=== PATIENT | female | born 1995 ===

== ENCOUNTER 2016-09-24 17:37 | Emergency (ER) | payer MEDICAID ==
[2016-09-24 17:46] VITALS: BP 154/88; PULSE 88; RESP 16; TEMP 98.3; O2SAT 100
--- NOTE | 2016-09-24 18:31 | ED PDOC ---
Lower Extremity Pain/Injury Time Seen by Provider: 09/24/16 17:48 Chief Complaint (Nursing): Lower Extremity Problem/Injury Chief Complaint (Provider): Lower Extremity Problem/Injury History Per: Patient History/Exam Limitations: no limitations Onset/Duration Of Symptoms: Days (x1 day) Current Symptoms Are (Timing): Still Present Additional Complaint(s): 21 y/o female who presents to the emergency department with a complaint of an injury to the left knee after jumping on a trampoline yesterday. Patient states she felt like her bone "popped" out and went back into place. Reports still feels like a bone is moving within the knee cap and cannot walk properly. Pain worse when bearing weight. PMD: None Past Medical History Reviewed: Historical Data, Nursing Documentation, Vital Signs Vital Signs: Last Vital Signs Temp 98.3 F 09/24/16 17:42 Pulse 88 09/24/16 17:42 Resp 16 09/24/16 17:42 BP 154/88 H 09/24/16 17:42 Pulse Ox 100 09/24/16 17:42 - Medical History PMH: Asthma - Surgical History Other surgeries: right breast sx - Family History Family History: States: Unknown Family Hx - Social History Current smoker - smoking cessation education provided: No Alcohol: None Drugs: Denies - Home Medications Home Medications: Ambulatory Orders Medication Instructions Recorded Ibuprofen [Motrin] 600 mg PO Q6 #20 tab 09/24/16 - Allergies Allergies/Adverse Reactions: Allergies Allergy/AdvReac Type Severity Reaction Status Date / Time No Known Allergies Allergy Verified 09/24/16 17:42 Review of Systems ROS Statement: Except As Marked, All Systems Reviewed And Found Negative Musculoskeletal: Positive for: Leg Pain (Left knee) Physical Exam - Reviewed Nursing Documentation Reviewed: Yes Vital Signs Reviewed: Yes - Physical Exam Appears: Positive for: Non-toxic, No Acute Distress Head Exam: Positive for: ATRAUMATIC, NORMOCEPHALIC Skin: Positive for: Normal Color, Warm, Dry Eye Exam: Positive for: Normal appearance. Negative for: Conjunctival injection Extremity: Positive for: Normal ROM (Full ROM.. Pain increases with flexion.). Negative for: Other (No edema, ecchymosis. Negative for Anterior drawer sign) Neurologic/Psych: Positive for: Alert, Oriented - ECG O2 Sat by Pulse Oximetry: 100 (RA) Pulse Ox Interpretation: Normal Medical Decision Making Medical Decision Making: Time: 17:48 Initial impression: Sprain rule out Fracture Initial plan: Knee 3 Views LT (RAD) Motrin 600 mg PO Revaluation XR: NAd, (+) Bakers cyst, as read by NEHEMIAS Pt placed in knee immobilizer and instructed on RICE therapy Scribe Attestation: Documented by Heavenly Ortega, acting as a scribe for Pricila Lopez. Provider Scribe Attestation: All medical record entries made by the Scribe were at my direction and personally dictated by me. I have reviewed the chart and agree that the record accurately reflects my personal performance of the history, physical exam, medical decision making, and the department course for this patient. I have also personally directed, reviewed, and agree with the discharge instructions and disposition. Disposition - Clinical Impression Clinical Impression: Bakers cyst, Knee pain - Patient ED Disposition Is Patient to be Admitted: No - Disposition Disposition: Routine/Home Disposition Time: 19:40 Condition: GOOD Prescriptions: Ibuprofen [Motrin] 600 mg PO Q6 #20 tab Instructions: Knee Pain (ED) Forms: [facility] ED School/Work Excuse
--- NOTE | 2016-09-25 08:43 | RAD ---
PROCEDURE: Left Knee Radiographs. HISTORY: Pain. COMPARISON: None. FINDINGS: BONES: Normal. No fracture. JOINTS: Normal. No osteoarthritis. JOINT EFFUSION: None. OTHER FINDINGS: None. IMPRESSION: No radiographic evidence of acute pathology.
== END 2016-09-24 19:51 | disposition home or self-care (01) ==
LOC: H.ER 17:37
DX: M71.22 Synovial cyst of popliteal space [Baker], left knee (principal); M25.562 Pain in left knee; J45.909 Unspecified asthma, uncomplicated

== ENCOUNTER 2016-12-18 23:12 | Emergency (ER) | payer SELFPAY ==
[2016-12-18 23:18] VITALS: BP 135/85; PULSE 84; RESP 18; TEMP 98.5; O2SAT 99
--- NOTE | 2016-12-19 00:24 | ED PDOC ---
HPI: Abdomen Time Seen by Provider: 12/18/16 23:23 Chief Complaint (Nursing): Abdominal Pain Chief Complaint (Provider): abd pain History Per: Patient History/Exam Limitations: no limitations Onset/Duration Of Symptoms: Sudden Onset Outside of [place] travel?: No Current Symptoms Are (Timing): Still Present Additional Complaint(s): 21yo female presents to the ED, with friend, with c/o sudden onset suprapubic pain radiating to her rectum. Patient states she had unprotected sex 1 month ago and is concerned for STDs. Denies dysuria, fever, chills. Reports hard time emptying bladder. Past Medical History Reviewed: Historical Data, Nursing Documentation, Vital Signs Vital Signs: Last Vital Signs Temp 98.5 F 12/18/16 23:14 Pulse 84 12/18/16 23:14 Resp 18 12/18/16 23:14 BP 135/85 12/18/16 23:14 Pulse Ox 99 12/19/16 01:15 - Medical History PMH: Asthma - Surgical History Surgical History: No Surg Hx - Family History Family History: States: Unknown Family Hx - Home Medications Home Medications: Ambulatory Orders Medication Instructions Recorded Ibuprofen [Motrin] 600 mg PO Q6 #20 tab 09/24/16 Ibuprofen [Motrin Tab] 600 mg PO Q6 #30 tab 12/19/16 Nitrofurantoin Macrocrystals 100 mg PO BID 5 Days 12/19/16 [Macrobid] - Allergies Allergies/Adverse Reactions: Allergies Allergy/AdvReac Type Severity Reaction Status Date / Time No Known Allergies Allergy Verified 09/24/16 17:42 Review of Systems ROS Statement: Except As Marked, All Systems Reviewed And Found Negative Constitutional: Negative for: Fever, Chills Gastrointestinal: Positive for: Abdominal Pain, Rectal Pain Genitourinary Female: Positive for: Other (hard time emptying bladder ). Negative for: Dysuria Physical Exam - Reviewed Nursing Documentation Reviewed: Yes Vital Signs Reviewed: Yes - Physical Exam Appears: Positive for: Well, No Acute Distress Head Exam: Positive for: ATRAUMATIC, NORMAL INSPECTION, NORMOCEPHALIC Skin: Positive for: Normal Color, Warm, Dry Eye Exam: Positive for: Normal appearance, EOMI, PERRL ENT: Positive for: Normal ENT Inspection Neck: Positive for: Normal, Painless ROM, Supple Cardiovascular/Chest: Positive for: Regular Rate, Rhythm. Negative for: Murmur , Tachycardia Respiratory: Positive for: Normal Breath Sounds. Negative for: Wheezing, Respiratory Distress Gastrointestinal/Abdominal: Positive for: Normal Exam, Soft. Negative for: Tenderness Back: Positive for: Normal Inspection Extremity: Positive for: Normal ROM. Negative for: Deformity, Swelling Neurologic/Psych: Positive for: Alert, Oriented - ECG O2 Sat by Pulse Oximetry: 99 Pulse Ox Interpretation: Normal (RA) Medical Decision Making Medical Decision Makin: Impression: gas Plan: chlamydia/GC RNA, TMA; rapid HIV UA E-Z-Gas II Eff. granules 1 each PO, Tylenol 650mg PO reassess 0113: Patient will be discharged home and will f/u in the clinic. Return precautions given for fever, chills, back pain, or other concerning symptoms. Scribe Attestation: Documented by Michael Schroeder acting as a scribe for Barry Burks MD. Provider Scribe Attestation: All medical record entries made by the Scribe were at my direction and personally dictated by me. I have reviewed the chart and agree that the record accurately reflects my personal performance of the history, physical exam, medical decision making, and the department course for this patient. I have also personally directed, reviewed, and agree with the discharge instructions and disposition. Disposition - Clinical Impression Clinical Impression: UTI (urinary tract infection) - Patient ED Disposition Is Patient to be Admitted: No - Disposition Referrals: [facility] [Outside] Disposition: Routine/Home Disposition Time: 01:13 Condition: STABLE Prescriptions: Ibuprofen [Motrin Tab] 600 mg PO Q6 #30 tab Nitrofurantoin Macrocrystals [Macrobid] 100 mg PO BID 5 Days Instructions: Urinary Tract Infection in Women (DC)
[2016-12-19 00:54] LABS: RBC URINE 4 /hpf (0-3); URINE BACTERIA OCC (<OCC); URINE BILIRUBIN NEGATIVE (NEGATIVE); URINE COLOR YELLOW (YELLOW); URINE GLUCOSE (UA) NEG (Normal); URINE KETONE NEGATIVE (NEGATIVE); URINE LEUKOCYTE ESTERASE MOD Leu/uL (Negative); URINE PROTEIN NEGATIVE (NEGATIVE); URINE UROBILINOGEN 0.2-1.0 mg/dL (0.2-1.0); WBC URINE 51 /hpf (0-5)
[2016-12-19 00:56] LABS: URINE BLOOD TRACE (NEGATIVE)
== END 2016-12-19 01:16 | disposition home or self-care (01) ==
LOC: H.ER 23:12
DX: N39.0 Urinary tract infection, site not specified (principal); J45.909 Unspecified asthma, uncomplicated

== ENCOUNTER 2016-12-28 00:58 | Emergency (ER) | payer SELFPAY ==
[2016-12-28 01:43] VITALS: BP 117/51; PULSE 75; RESP 17; TEMP 98; O2SAT 99
--- NOTE | 2016-12-28 02:04 | ED PDOC ---
HPI: Female Pain Time Seen by Provider: 12/28/16 01:24 Chief Complaint (Nursing): Female Genitourinary Chief Complaint (Provider): vaginal bleeding History Per: Patient History/Exam Limitations: no limitations Onset/Duration Of Symptoms: Days (3) Current Symptoms Are (Timing): Still Present Additional History Per: Patient Additional Complaint(s): 21 y/o female presents for eval of light vaginal bleeding x 3 days. Patient states LMP 12/08, periods usually regular. PAtient states she recently finished Macrobid for a UTI. Denies fever, headache, dizziness, lightheadedness, nausea/ vomiting, chest pain, shortness of breath, palpitations, abdominal pain, pelvic pain, dysuria, hematuria. Past Medical History Reviewed: Historical Data, Nursing Documentation, Vital Signs Vital Signs: Last Vital Signs Temp 98.0 F 12/28/16 01:23 Pulse 75 12/28/16 01:23 Resp 17 12/28/16 01:23 BP 117/51 L 12/28/16 01:23 Pulse Ox 99 12/28/16 01:23 - Medical History PMH: Asthma - Family History Family History: States: Unknown Family Hx - Home Medications Home Medications: Ambulatory Orders Medication Instructions Recorded Ibuprofen [Motrin] 600 mg PO Q6 #20 tab 09/24/16 Ibuprofen [Motrin Tab] 600 mg PO Q6 #30 tab 12/19/16 Nitrofurantoin Macrocrystals 100 mg PO BID 5 Days 12/19/16 [Macrobid] - Allergies Allergies/Adverse Reactions: Allergies Allergy/AdvReac Type Severity Reaction Status Date / Time No Known Allergies Allergy Verified 09/24/16 17:42 Review of Systems ROS Statement: Except As Marked, All Systems Reviewed And Found Negative Genitourinary Female: Positive for: Vaginal Bleeding Physical Exam - Reviewed Nursing Documentation Reviewed: Yes Vital Signs Reviewed: Yes - Physical Exam Appears: Positive for: Well, Non-toxic, No Acute Distress Head Exam: Positive for: ATRAUMATIC, NORMAL INSPECTION, NORMOCEPHALIC Skin: Positive for: Normal Color Cardiovascular/Chest: Positive for: Regular Rate, Rhythm Respiratory: Positive for: Normal Breath Sounds Gastrointestinal/Abdominal: Positive for: Normal Exam, Bowel Sounds, Soft. Negative for: Tenderness Pelvic Exam: Positive for: External Exam Normal, Bimanual Exam Normal, No Cerv. Motion Tender, Active Bleeding (mild) Back: Positive for: Normal Inspection Extremity: Positive for: Normal ROM Neurologic/Psych: Positive for: Alert, Oriented - ECG O2 Sat by Pulse Oximetry: 99 - Progress ED Course And Treament: upreg, udip Patient educated on findings, discharged with instructions to follow up Supervisor [employer]pection 2-3 days. REturn to ED for worsening/concerning symptoms. Disposition - Clinical Impression Clinical Impression: Vaginal bleeding - Patient ED Disposition Is Patient to be Admitted: No Counseled Patient/Family Regarding: Studies Performed, Diagnosis, Need For Followup - Disposition Referrals: Guevara Kelly MD [Staff Provider] - Disposition: Routine/Home Disposition Time: 02:20 Condition: STABLE Instructions: Dysfunctional Uterine Bleeding (ED)
== END 2016-12-28 03:00 | disposition home or self-care (01) ==
LOC: H.ER 00:58
DX: N93.9 Abnormal uterine and vaginal bleeding, unspecified (principal)